=== PATIENT | female | born 1975 | race Caucasian/White ===

== ENCOUNTER 2018-01-03 20:17 | Emergency (ER) | payer MEDICARE, OTHER ==
[2018-01-03] MEDS ORDERED: Triamcinolone Acetonide 40 MG/ML 1 ML MDV IM ONE (20:18)
[2018-01-03] MEDS ORDERED: Lidocaine 2% 20 ML MDV INJECT ONE (20:18)
[2018-01-03] MEDS ORDERED: Triamcinolone Acetonide 40 MG/ML 1 ML MDV ONE (21:07)
[2018-01-03] MEDS: Triamcinolone Acetonide 40 MG/ML 1 ML MDV INJECT ONE ×2 (21:07→21:47)
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
== END 2018-01-03 21:45 | disposition home or self-care (01) ==
LOC: FB.ED 20:17
DX: M79.7 Fibromyalgia (principal); M25.511 Pain in right shoulder; J43.9 Emphysema, unspecified; E66.9 Obesity, unspecified; M54.5 Low back pain; G89.29 Other chronic pain; Z68.38 Body mass index [BMI] 38.0-38.9, adult
CPT/HCPCS: 20610; 99282; J3301

== ENCOUNTER 2019-01-16 07:47 | Emergency (ER) | payer MEDICARE, MEDICAID ==
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
[2019-01-16] MEDS: Prochlorperazine 10 MG/2 ML SDV IM ONE (08:40)
[2019-01-16] MEDS: Ketorolac 60 MG/2 ML SDV IM ONE (08:40)
[2019-01-16] MEDS: diphenhydrAMINE 50 MG/ML SDV IM ONE (08:40)
== END 2019-01-16 08:47 | disposition home or self-care (01) ==
LOC: FB.ED 07:47
DX: G43.909 Migraine, unspecified, not intractable, without status migrainosus (principal); H60.12 Cellulitis of left external ear; I10 Essential (primary) hypertension; J44.9 Chronic obstructive pulmonary disease, unspecified; G47.30 Sleep apnea, unspecified; F41.9 Anxiety disorder, unspecified; F32.9 Major depressive disorder, single episode, unspecified; F17.210 Nicotine dependence, cigarettes, uncomplicated; Z68.41 Body mass index [BMI] 40.0-44.9, adult; E66.9 Obesity, unspecified; Z88.6 Allergy status to analgesic agent; Z88.8 Allergy status to other drugs, medicaments and biological substances; Z91.048 Other nonmedicinal substance allergy status; Z79.899 Other long term (current) drug therapy; Z79.51 Long term (current) use of inhaled steroids; Z79.82 Long term (current) use of aspirin
CPT/HCPCS: 96372; 99283; J0780; J1200; J1885

== ENCOUNTER → 2019-02-19 | Outpatient (CLI) | payer MEDICARE, MEDICAID | LOC: FB.CLBR 08:00 | PROVIDERS: ATTEND Nurse Practitioner Family | DX: J20.9 Acute bronchitis, unspecified (principal) | CPT/HCPCS: 99213 ==

== ENCOUNTER 2019-02-22 16:38 | Emergency (ER) | payer MEDICARE, MEDICAID ==
[2019-02-22] MEDS ORDERED: Ketorolac 30 MG/ML SDV IVPUSH ONE (17:02)
--- NOTE | 2019-02-22 17:10 | EDM.PDOC ---
ED HPI GENERAL MEDICAL PROBLEM - General Chief Complaint: Chest Pain Stated Complaint: CHEST PAIN Time Seen by Provider: 02/22/19 17:05 Source of Information: Reports: Patient History Limitations: Reports: No Limitations - History of Present Illness INITIAL COMMENTS - FREE TEXT/NARRATIVE: Presents with substernal chest pain x 1 week exacerbated with cough and swallowing. Pain is non-radiating and sharp. Patient has had a cough x 1 month, productive of yellow/green sputum and is currently on Zithromax. Denies h/o CAD. Patient was diagnosed with pericarditis @15 yrs ago. Duration: Week(s): (1) Location: Reports: Chest Severity: Moderate chest Pain Score (Numeric/FACES): 9 - Related Data Allergies Allergy/AdvReac Type Severity Reaction Status Date / Time acetaminophen [From Tylenol] Allergy Other Verified 01/04/18 01:02 adhesive tape Allergy Rash Verified 02/22/19 18:31 ibuprofen Allergy Vomiting Verified 01/25/18 18:38 varenicline [From Chantix] Allergy Other Verified 02/22/19 18:31 Home Meds: Home Meds Montelukast [Singulair] 10 mg PO BEDTIME 01/03/18 [History] Pantoprazole Sodium [Protonix] 40 mg PO BEDTIME 01/03/18 [History] Pregabalin [Lyrica] 100 mg PO TID 01/03/18 [History] traZODone 100 mg PO BEDTIME 01/03/18 [History] Albuterol Sulfate [Proair Hfa] 2 puff IH Q4H PRN 01/25/18 [History] Albuterol/Ipratropium [DuoNeb 3.0-0.5 MG/3 ML] 3 ml Q4H 01/25/18 [History] Arformoterol [Brovana] 15 mcg IH BID 01/25/18 [History] Aspirin 81 mg PO BEDTIME 01/25/18 [History] Metoprolol Succinate [Toprol XL 50mg] 50 mg BEDTIME 01/25/18 [History] Pramipexole [Mirapex] 0.25 - 50 mg BEDTIME 01/25/18 [History] hydrOXYzine pamoate [Hydroxyzine Pamoate] 50 mg TID 01/25/18 [History] Cephalexin [Keflex] 500 mg PO QID 7 Days #28 capsule 10/11/19 [Rx] Lurasidone HCl [Latuda] 60 mg PO BEDTIME 01/16/19 [History] Vortioxetine Hydrobromide [Trintellix] 20 mg PO DAILY 01/16/19 [History] Codeine/guaiFENesin [guaiFENesin-Codeine Syrup] 10 ml PO Q4H PRN #120 ml [Rx] Past Medical History Cardiovascular History: Reports: Afib, Arrhythmia, Heart Failure, Hypertension. Denies: Blood Clots/VTE/DVT, CAD Other Cardiovascular History: Episodes of tachycardia Respiratory History: Reports: Asthma, COPD, Pneumonia, Recurrent, Sleep Apnea Other Respiratory History: Uses O2 @ 2LNC @ hs, has sleep apnea machine @ home. 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 History: [id number] Musculoskeletal History: Reports: Arthritis, Fracture, Fibromyalgia, Osteoarthritis Other Musculoskeletal History: hx fx R ankle, R hand Neurological History: Reports: Migraines, Neuropathy, Peripheral Psychiatric History: Reports: Anxiety, Depression, Other (See Below) Other Psychiatric History: insomnia Endocrine/Metabolic History: Reports: Hypothyroidism, Obesity/BMI 30+ Immunologic History: Reports: Other (See Below) Other Immunologic History: hi WBC's - Past Surgical History HEENT Surgical History: Reports: Oral Surgery ([place] teeth extraction) GI Surgical History: Reports: Appendectomy, Cholecystectomy, Colonoscopy, EGD Female Surgical History: Reports: D&C, Hysterectomy, Salpingo-Oophorectomy Other Female Surgeries/Procedures: D&C x 2 Other Neurological Surgeries/Procedures: Low back surgery SI joint & cauterized nerves Musculoskeletal Surgical History: Reports: Arthroscopic Knee, Carpal Tunnel, Other (See Below) Other Musculoskeletal Surgeries/Procedures:: Carpal tunnel repair left and right , R knee scope Social & Family History - Family History Family Medical History: Noncontributory - Tobacco Use Smoking Status *Q: Current Every Day Smoker Tobacco Use Within Last Twelve Months: Cigarettes - Caffeine Use Caffeine Use: Reports: Coffee, Soda - Living Situation & Occupation Occupation: Disabled ED ROS GENERAL - Review of Systems Review Of Systems: Comprehensive ROS is negative, except as noted in HPI. ED EXAM, GENERAL - Physical Exam Exam: See Below Exam Limited By: No Limitations General Appearance: Alert, WD/WN, No Apparent Distress Ears: Normal External Exam Throat/Mouth: No Airway Compromise Head: Atraumatic, Normocephalic Neck: Full Range of Motion Respiratory/Chest: No Respiratory Distress, Lungs Clear, Normal Breath Sounds, Other (Reproducible chest wall tenderness is present) Cardiovascular: Regular Rate, Rhythm, No Murmur GI/Abdominal: Soft, Non-Tender, No Distention Back Exam: Full Range of Motion Extremities: Normal Inspection, Normal Range of Motion, Non-Tender, No Pedal Edema Neurological: Alert, Normal Cognition, No Motor/Sensory Deficits Psychiatric: Normal Affect, Normal Mood Skin Exam: Warm, Dry, Intact EKG INTERPRETATION EKG Date: 02/22/19 Time: 16:49 Rhythm: NSR Rate (Beats/Min): 77 [place]: Normal P-Wave: Present QRS: RBBB Comparison: NA - No Prior EKG Course - Vital Signs Last Recorded V/S: Last Vital Signs Temp 37.1 C 02/22/19 16:40 Pulse 79 02/22/19 16:40 Resp 17 02/22/19 16:40 BP 118/78 02/22/19 16:40 Pulse Ox 97 02/22/19 16:40 - Orders/Labs/Meds Orders: Active Orders 24 hr Category Date Time Status EKG Documentation Completion [RC] ASDIRECTED Care 02/22/19 17:01 Active Ang Chest [CT] Stat Exams 02/22/19 18:21 Taken CXR [Chest 1V Frontal] [CR] Stat Exams 02/22/19 17:29 Taken Sodium Chloride 0.9% [Saline Flush] Med 02/22/19 17:01 Active 10 ml FLUSH ASDIRECTED PRN Saline Lock Insert [OM.PC] Routine Oth 02/22/19 17:01 Ordered EKG 12 Lead [EK] Stat Ther 02/22/19 17:01 Ordered Medication Orders Sodium Chloride (Saline Flush) 10 ml FLUSH ASDIRECTED PRN PRN Reason: Keep Vein Open Last Admin: 02/22/19 18:50 Dose: 10 ml Admin: 02/22/19 17:30 Dose: 10 ml Admin: 02/22/19 17:24 Dose: 10 ml Labs: Laboratory Tests 1102/22/19 02/22/19 Range/Units 17:25 17:25 17:25 WBC 14.2 H (4.5-12.0) X10-3/uL RBC 4.81 (3.23-5.20) x10(6)uL Hgb 14.3 (11.5-15.5) g/dL Hct 43.1 (30.0-51.3) % MCV 89.6 (80-96) fL MCH 29.7 (27.7-33.6) pg MCHC 33.2 (32.2-35.4) g/dL RDW 12.1 (11.5-15.5) % Plt Count 240 (125-369) X10(3)uL MPV 9.6 (7.4-10.4) fL Neut % (Auto) 63.5 (46-82) % Lymph % (Auto) 28.5 (13-37) % Jewell % (Auto) 5.8 (4-12) % Eos % (Auto) 2 (1.0-5.0) % Baso % (Auto) 1 (0-2) % Neut # (Auto) 9.0 H (1.6-8.3) # Lymph # (Auto) 4.1 (0.6-5.0) # Jewell # (Auto) 0.8 (0.0-1.3) # Eos # (Auto) 0.2 (0.0-0.8) # Baso # (Auto) 0.1 (0.0-0.2) # PT 9.1 (8.7-11.1) INR 0.94 (0.89-1.13) APTT 26.3 (24.4-33.2) SECONDS D-Dimer, Quantitative (0.0-0.59) mg/LFEU Sodium 142 (135-145) mmol/L Potassium 3.8 (3.5-5.3) mmol/L Chloride 104 (100-110) mmol/L Carbon Dioxide 29 (21-32) mmol/L BUN 4 L (7-18) mg/dL Creatinine 0.6 (0.55-1.02) mg/dL Est Cr Clr Drug Dosing TNP Estimated GFR (MDRD) > 60 (>60) BUN/Creatinine Ratio 6.7 L (9-20) Glucose 112 (80-116) mg/dL Calcium 9.0 (8.6-10.2) mg/dL Total Bilirubin 0.4 (0.1-1.3) mg/dL AST 20 (5-25) IU/L ALT 21 (12-36) U/L Alkaline Phosphatase 184 H (56-112) IU/L Troponin I (<0.017-0.056) ng/mL Total Protein 7.4 (6.0-8.0) g/dL Albumin 3.2 L (3.5-5.2) g/dL Globulin 4.2 g/dL Albumin/Globulin Ratio 0.8 02/22/19 02/22/19 02/22/19 Range/Units 17:25 17:25 20:30 WBC (4.5-12.0) X10-3/uL RBC (3.23-5.20) x10(6)uL Hgb (11.5-15.5) g/dL Hct (30.0-51.3) % MCV (80-96) fL MCH (27.7-33.6) pg MCHC (32.2-35.4) g/dL RDW (11.5-15.5) % Plt Count (125-369) X10(3)uL MPV (7.4-10.4) fL Neut % (Auto) (46-82) % Lymph % (Auto) (13-37) % Jewell % (Auto) (4-12) % Eos % (Auto) (1.0-5.0) % Baso % (Auto) (0-2) % Neut # (Auto) (1.6-8.3) # Lymph # (Auto) (0.6-5.0) # Jewell # (Auto) (0.0-1.3) # Eos # (Auto) (0.0-0.8) # Baso # (Auto) (0.0-0.2) # PT (8.7-11.1) INR (0.89-1.13) APTT (24.4-33.2) SECONDS D-Dimer, Quantitative 0.89 H (0.0-0.59) mg/LFEU Sodium (135-145) mmol/L Potassium (3.5-5.3) mmol/L Chloride (100-110) mmol/L Carbon Dioxide (21-32) mmol/L BUN (7-18) mg/dL Creatinine (0.55-1.02) mg/dL Est Cr Clr Drug Dosing Estimated GFR (MDRD) (>60) BUN/Creatinine Ratio (9-20) Glucose (80-116) mg/dL Calcium (8.6-10.2) mg/dL Total Bilirubin (0.1-1.3) mg/dL AST (5-25) IU/L ALT (12-36) U/L Alkaline Phosphatase (56-112) IU/L Troponin I < 0.017 L < 0.017 L (<0.017-0.056) ng/mL Total Protein (6.0-8.0) g/dL Albumin (3.5-5.2) g/dL Globulin g/dL Albumin/Globulin Ratio Meds: Medications Generic Name Dose Route Start Last Admin Trade Name Freq PRN Reason Stop Dose Admin Sodium Chloride 10 ml 02/22/19 17:01 02/22/19 18:50 Saline Flush FLUSH 10 ml ASDIRECTED PRN Administration Keep Vein Open Discontinued Medications Generic Name Dose Route Start Last Admin Trade Name Freq PRN Reason Stop Dose Admin Iopamidol 100 ml 02/22/19 18:29 02/22/19 18:46 Isovue-370 (76%) IV 02/22/19 18:30 85 ml . DIRECTED ONE Administration Ketorolac Tromethamine 30 mg 02/22/19 17:02 02/22/19 17:29 Toradol IVPUSH 02/22/19 17:03 30 mg ONETIME ONE Administration Morphine Sulfate 2 mg 02/22/19 18:25 02/22/19 18:53 Morphine IVPUSH 02/22/19 18:26 2 mg ONETIME ONE Administration - Radiology Interpretation Free Text/Narrative:: CXR: No acute process. (ED provider interpretation) CTA chest: No PE, aortic dissection, or pneumonia. Paratracheal adenopathy. ( [facility]) - Re-Assessments/Exams Free Text/Narrative Re-Assessment/Exam: 02/22/19 21:06 Symptoms improved after Morphine 2mg IV. No improvement after Toradol 30mg IV. 02/22/19 21:13 Patient states she was recently prescribed Robitussin AC, but is out. MPDMP reviewed. Departure - Departure Time of Disposition: 21:07 Disposition: Home, Self-Care 01 Condition: Good Clinical Impression: Bronchitis, Costochondritis Prescriptions: Codeine/guaiFENesin [guaiFENesin-Codeine Syrup] 10 ml PO Q4H PRN #120 ml PRN Reason: Cough Instructions: Costochondritis, [id number], Acute Bronchitis, Adult, Easy-to- Read Referrals: PCP,None [Ordering Only Provider] - Forms: ED Department Discharge Additional Instructions: Continue Zithromax. Fill the prescription for Robitussin AC and take as directed. Follow up with your primary physician in 2-3 days. Return to the ER if symptoms worsen. - My Orders Last 24 Hours: My Active Orders 02/22/19 17:01 EKG Documentation Completion [RC] ASDIRECTED Sodium Chloride 0.9% [Saline Flush] 10 ml FLUSH ASDIRECTED PRN Saline Lock Insert [OM.PC] Routine EKG 12 Lead [EK] Stat 02/22/19 17:29 CXR [Chest 1V Frontal] [CR] Stat 02/22/19 18:21 Ang Chest [CT] Stat - Assessment/Plan Last 24 Hours: My Active Orders 02/22/19 17:01 EKG Documentation Completion [RC] ASDIRECTED Sodium Chloride 0.9% [Saline Flush] 10 ml FLUSH ASDIRECTED PRN Saline Lock Insert [OM.PC] Routine EKG 12 Lead [EK] Stat 02/22/19 17:29 CXR [Chest 1V Frontal] [CR] Stat 02/22/19 18:21 Ang Chest [CT] Stat
[2019-02-22] MEDS: Sodium Chloride 0.9% 10 ML Syringe FLUSH PRN ×3 (17:24→18:50)
[2019-02-22] MEDS ORDERED: Morphine 2 MG/ML Syringe IVPUSH ONE (18:25)
[2019-02-22] MEDS ORDERED: Iopamidol 755 Mg/ML 100 ML Bottle IV ONE (18:29)
== END 2019-02-22 21:35 | disposition home or self-care (01) ==
LOC: FB.ED 16:38
DX: J40 Bronchitis, not specified as acute or chronic (principal); M94.0 Chondrocostal junction syndrome [Tietze]; I11.0 Hypertensive heart disease with heart failure; I50.9 Heart failure, unspecified; E03.9 Hypothyroidism, unspecified; J44.9 Chronic obstructive pulmonary disease, unspecified; E66.9 Obesity, unspecified; I48.91 Unspecified atrial fibrillation; F32.9 Major depressive disorder, single episode, unspecified; F17.200 Nicotine dependence, unspecified, uncomplicated; Z88.6 Allergy status to analgesic agent; Z88.8 Allergy status to other drugs, medicaments and biological substances; Z68.41 Body mass index [BMI] 40.0-44.9, adult; Z79.82 Long term (current) use of aspirin; Z79.899 Other long term (current) drug therapy; Z91.048 Other nonmedicinal substance allergy status
CPT/HCPCS: 36415; 71045; 71275; 80053; 84484; 85025; 85379; 85610; 85730; 93005; 96374; 96375; 99285; J1885; J2270; Q9967; 93010; 99283

== ENCOUNTER 2019-07-28 12:12 | Emergency (ER) | payer MEDICARE, MEDICAID ==
[2019-07-28] MEDS ORDERED: Sodium Chloride 0.9% 10 ML Syringe FLUSH PRN (12:44)
[2019-07-28] MEDS ORDERED: Morphine 2 MG/ML Syringe IVPUSH ONE (12:50)
[2019-07-28] MEDS ORDERED: Metolazone 5 MG Tab PO ONE (12:50)
[2019-07-28] MEDS ORDERED: Furosemide 40 MG/4 ML VIAL IVPUSH ONE (12:50)
--- NOTE | 2019-07-28 13:40 | EDM.PDOC ---
ED HPI GENERAL MEDICAL PROBLEM - General Chief Complaint: Cardiovascular Problem Stated Complaint: SOB Time Seen by Provider: 07/28/19 12:15 Source of Information: Reports: Patient History Limitations: Reports: No Limitations - History of Present Illness INITIAL COMMENTS - FREE TEXT/NARRATIVE: Patient presented to the ED because of dyspnea and edema for the past 4 days. She said she had fever although triage vs are normal. there is no asssociated chest pain, N/V but have lower extremity edema in which she is taking lasix 20 mg PRN. There is no cough or cold symproms or recent exposure to COVID because she is worried. mid chest Pain Score (Numeric/FACES): 8 - Related Data Allergies Allergy/AdvReac Type Severity Reaction Status Date / Time acetaminophen [From Tylenol] Allergy Other Verified 07/28/19 12:41 adhesive tape Allergy Rash Verified 07/28/19 12:41 ibuprofen Allergy Vomiting Verified 07/28/19 12:41 ranitidine [From Zantac] Allergy Hallucinati Verified 07/28/19 12:41 ons varenicline [From Chantix] Allergy Other Verified 07/28/19 12:41 sirella (sp?) Allergy Vomiting Uncoded 02/23/19 06:08 Home Meds: Home Meds Montelukast [Singulair] 10 mg PO BEDTIME 01/03/18 [History] Pantoprazole Sodium [Protonix] 40 mg PO BEDTIME 01/03/18 [History] traZODone 150 mg PO BEDTIME 01/03/18 [History] Albuterol Sulfate [Proair Hfa] 2 puff IH Q4H PRN 01/25/18 [History] Albuterol/Ipratropium [DuoNeb 3.0-0.5 MG/3 ML] 3 ml NEB Q4H 01/25/18 [History] Arformoterol [Brovana] 15 mcg NEB BID 01/25/18 [History] Aspirin 81 mg PO BEDTIME 01/25/18 [History] Metoprolol Succinate [Toprol XL 50mg] 50 mg PO BEDTIME 01/25/18 [History] hydrOXYzine pamoate [Hydroxyzine Pamoate] 50 mg PO TID PRN 01/25/18 [History] Lurasidone HCl [Latuda] 60 mg PO BEDTIME 01/16/19 [History] Vortioxetine Hydrobromide [Trintellix] 20 mg PO DAILY 01/16/19 [History] Codeine/guaiFENesin [guaiFENesin-Codeine Syrup] 10 ml PO Q4H PRN #120 ml [Rx] Azithromycin 1 tab PO ASDIRECTED 02/23/19 [History] Pramipexole [Mirapex] 0.5 mg PO BEDTIME 02/23/19 [History] Pregabalin [Lyrica] 75 mg PO TID 02/23/19 [History] predniSONE [Prednisone] 20 mg PO DAILY #7 tablet 07/28/19 [Rx] Past Medical History Cardiovascular History: Reports: Afib, Arrhythmia, Heart Failure, Hypertension Other Cardiovascular History: Episodes of tachycardia Respiratory History: Reports: Asthma, COPD, Pneumonia, Recurrent, Sleep Apnea Other Respiratory History: Uses O2 @ 2LNC @ hs, has sleep apnea machine @ home. 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: [id number] Musculoskeletal History: Reports: Arthritis, Fracture, Fibromyalgia, Osteoarthritis Other Musculoskeletal History: hx fx R ankle, R hand Neurological History: Reports: Migraines, Neuropathy, Peripheral Psychiatric History: Reports: Anxiety, Depression, Other (See Below) Other Psychiatric History: insomnia Endocrine/Metabolic History: Reports: Hypothyroidism, Obesity/BMI 30+ Immunologic History: Reports: Other (See Below) Other Immunologic History: hi WBC's - Past Surgical History HEENT Surgical History: Reports: Oral Surgery GI Surgical History: Reports: Appendectomy, Cholecystectomy, Colonoscopy, EGD Female Surgical History: Reports: D&C, Hysterectomy, Salpingo-Oophorectomy Other Female Surgeries/Procedures: D&C x 2 Other Neurological Surgeries/Procedures: Low back surgery SI joint & cauterized nerves Musculoskeletal Surgical History: Reports: Arthroscopic Knee, Carpal Tunnel, Other (See Below) Other Musculoskeletal Surgeries/Procedures:: Carpal tunnel repair left and right , R knee scope Social & Family History - Family History Family Medical History: Noncontributory - Tobacco Use Smoking Status *Q: Current Every Day Smoker Years of Tobacco use: 30 Packs/Tins Daily: 0.5 - Caffeine Use Caffeine Use: Reports: Coffee, Soda - Living Situation & Occupation Occupation: Disabled ED ROS GENERAL - Review of Systems Review Of Systems: See Below Constitutional: Reports: No Symptoms HEENT: Reports: No Symptoms Respiratory: Reports: Shortness of Breath Cardiovascular: Reports: No Symptoms Endocrine: Reports: No Symptoms GI/Abdominal: Reports: No Symptoms : Reports: No Symptoms Musculoskeletal: Reports: No Symptoms Skin: Reports: No Symptoms Neurological: Reports: No Symptoms Psychiatric: Reports: No Symptoms ED EXAM, GENERAL - Physical Exam Exam: See Below Exam Limited By: No Limitations General Appearance: Alert, No Apparent Distress Ears: Normal External Exam, Normal Canal Nose: Normal Inspection, Normal Mucosa Throat/Mouth: Normal Inspection, Normal Lips Head: Atraumatic, Normocephalic Neck: Normal Inspection, Supple Respiratory/Chest: No Respiratory Distress, Lungs Clear, Normal Breath Sounds Cardiovascular: Normal Peripheral Pulses, Regular Rate, Rhythm, No Edema, No Gallop GI/Abdominal: Normal Bowel Sounds, Soft, Non-Tender Back Exam: Normal Inspection, Full Range of Motion Extremities: Normal Inspection Course - Vital Signs Text/Narrative:: Labs/EKG/CXR was discussed with patient and verbalized full understanding EKG-NSR Trop-neg Pro BNP-neg CXR-neg Lasix 40 mg IV zaroxolyn 5 mg po x1 Morphine 2 mg IV x1 Last Recorded V/S: Last Vital Signs Temp 36.1 C 07/28/19 13:30 Pulse 67 07/28/19 13:30 Resp 14 07/28/19 13:30 BP 120/62 07/28/19 13:30 Pulse Ox 96 07/28/19 13:30 - Orders/Labs/Meds Labs: Laboratory Tests 07/28/19 07/28/19 07/28/19 Range/Units 13:00 13:00 13:00 WBC 11.1 (4.5-12.0) X10-3/uL RBC 4.67 (3.23-5.20) x10(6)uL Hgb 14.0 (11.5-15.5) g/dL Hct 41.3 (30.0-51.3) % MCV 88.5 (80-96) fL MCH 30.1 (27.7-33.6) pg MCHC 34.0 (32.2-35.4) g/dL RDW 12.1 (11.5-15.5) % Plt Count 209 (125-369) X10(3)uL MPV 9.7 (7.4-10.4) fL Neut % (Auto) 52.8 (46-82) % Lymph % (Auto) 36.4 (13-37) % Carter % (Auto) 8.1 (4-12) % Eos % (Auto) 2 (1.0-5.0) % Baso % (Auto) 1 (0-2) % Neut # (Auto) 5.9 (1.6-8.3) # Lymph # (Auto) 4.0 (0.6-5.0) # Carter # (Auto) 0.9 (0.0-1.3) # Eos # (Auto) 0.2 (0.0-0.8) # Baso # (Auto) 0.1 (0.0-0.2) # D-Dimer, Quantitative (0.0-0.59) mg/LFEU Sodium 143 (135-145) mmol/L Potassium 4.2 (3.5-5.3) mmol/L Chloride 106 (100-110) mmol/L Carbon Dioxide 27 (21-32) mmol/L BUN 9 (7-18) mg/dL Creatinine 0.8 (0.55-1.02) mg/dL Est Cr Clr Drug Dosing 75.01 mL/min Estimated GFR (MDRD) > 60 (>60) BUN/Creatinine Ratio 11.3 (9-20) Glucose 96 (80-116) mg/dL Calcium 8.8 (8.6-10.2) mg/dL Total Bilirubin 0.4 (0.1-1.3) mg/dL AST 20 (5-25) IU/L ALT 21 (12-36) U/L Alkaline Phosphatase 186 H (56-112) IU/L Troponin I 4.8 (4.0-60.3) pg/mL NT-Pro-B Natriuret Pep 15 (<=125) pg/mL Total Protein 7.1 (6.0-8.0) g/dL Albumin 3.1 L (3.5-5.2) g/dL Globulin 4.0 g/dL Albumin/Globulin Ratio 0.8 / Range/Units 13:00 WBC (4.5-12.0) X10-3/uL RBC (3.23-5.20) x10(6)uL Hgb (11.5-15.5) g/dL Hct (30.0-51.3) % MCV (80-96) fL MCH (27.7-33.6) pg MCHC (32.2-35.4) g/dL RDW (11.5-15.5) % Plt Count (125-369) X10(3)uL MPV (7.4-10.4) fL Neut % (Auto) (46-82) % Lymph % (Auto) (13-37) % Carter % (Auto) (4-12) % Eos % (Auto) (1.0-5.0) % Baso % (Auto) (0-2) % Neut # (Auto) (1.6-8.3) # Lymph # (Auto) (0.6-5.0) # Carter # (Auto) (0.0-1.3) # Eos # (Auto) (0.0-0.8) # Baso # (Auto) (0.0-0.2) # D-Dimer, Quantitative 0.51 (0.0-0.59) mg/LFEU Sodium (135-145) mmol/L Potassium (3.5-5.3) mmol/L Chloride (100-110) mmol/L Carbon Dioxide (21-32) mmol/L BUN (7-18) mg/dL Creatinine (0.55-1.02) mg/dL Est Cr Clr Drug Dosing mL/min Estimated GFR (MDRD) (>60) BUN/Creatinine Ratio (9-20) Glucose (80-116) mg/dL Calcium (8.6-10.2) mg/dL Total Bilirubin (0.1-1.3) mg/dL AST (5-25) IU/L ALT (12-36) U/L Alkaline Phosphatase (56-112) IU/L Troponin I (4.0-60.3) pg/mL NT-Pro-B Natriuret Pep (<=125) pg/mL Total Protein (6.0-8.0) g/dL Albumin (3.5-5.2) g/dL Globulin g/dL Albumin/Globulin Ratio Meds: Medications Discontinued Medications Generic Name Dose Route Start Last Admin Trade Name [place] PRN Reason Stop Dose Admin Furosemide 40 mg 07/28/19 12:50 07/28/19 13:09 Lasix IVPUSH 07/28/19 12:51 40 mg NOW ONE Administration Metolazone 5 mg 07/28/19 12:50 07/28/19 13:09 Zaroxolyn PO 07/28/19 12:51 5 mg ONETIME ONE Administration Morphine Sulfate 2 mg 07/28/19 12:50 07/28/19 13:09 Morphine IVPUSH 07/28/19 12:51 2 mg ONETIME ONE Administration Sodium Chloride 10 ml 07/28/19 12:44 07/28/19 13:10 Saline Flush FLUSH 10 ml ASDIRECTED PRN Administration Keep Vein Open Departure - Departure Time of Disposition: 13:40 Disposition: Home, Self-Care 01 Condition: Good Clinical Impression: COPD (chronic obstructive pulmonary disease), CHF (congestive heart failure) Prescriptions: predniSONE [Prednisone] 20 mg PO DAILY #7 tablet Instructions: Chronic Obstructive Pulmonary Disease, Heart Failure, Easy-to- Read Referrals: [facility] [Primary Care Provider] - Forms: ED Department Discharge Additional Instructions: please read discharge instructions on COPD and CHF take your lasix 20 mg daily for 5 days prednisone 20 mg daily for 7 days follow up with your doctor if symptoms persist or worsens Sepsis Event Note - Evaluation Sepsis Screening Result: No Definite Risk - Focused Exam Date Exam was Performed: 07/30/19 Time Exam was Performed: 10:57
--- NOTE | 2019-07-28 17:18 | CR ---
INDICATION: Chest pain. CHEST, ONE VIEW: AP upright view of the chest was obtained 07/28/19 and compared with 02/22/19 and 01/25/18. The heart did not appear enlarged. Mediastinum was unremarkable. Mild degenerative changes noted in the mid thoracic spine. Overlying EKG leads are noted. A definite active infiltrate or effusion was not identified. Evidence of exogenous obesity is noted. IMPRESSION: No acute process. MTDD
== END 2019-07-28 13:50 | disposition home or self-care (01) ==
LOC: FB.ED 12:12
DX: J44.9 Chronic obstructive pulmonary disease, unspecified (principal); I11.0 Hypertensive heart disease with heart failure; I50.9 Heart failure, unspecified; I48.91 Unspecified atrial fibrillation; M19.90 Unspecified osteoarthritis, unspecified site; F41.9 Anxiety disorder, unspecified; F32.9 Major depressive disorder, single episode, unspecified; E03.9 Hypothyroidism, unspecified; E66.9 Obesity, unspecified; Z68.24 Body mass index [BMI] 24.0-24.9, adult; F17.210 Nicotine dependence, cigarettes, uncomplicated; Z88.8 Allergy status to other drugs, medicaments and biological substances; Z88.6 Allergy status to analgesic agent; Z91.048 Other nonmedicinal substance allergy status; Z79.899 Other long term (current) drug therapy; Z79.82 Long term (current) use of aspirin
CPT/HCPCS: 36415; 71045; 80053; 83880; 84484; 85025; 85379; 93005; 96374; 96375; 99285-25; A9270-GY; J1940; J2270

== ENCOUNTER 2019-08-04 18:34 | Emergency (ER) | payer MEDICARE, MEDICAID ==
[2019-08-04] MEDS ORDERED: Aspirin 81 MG Tab.Chew PO ONE (19:03)
[2019-08-04] MEDS ORDERED: Ketorolac 30 MG/ML SDV IVPUSH ONE (19:04)
--- NOTE | 2019-08-04 20:01 | EDM.PDOC ---
ED HPI GENERAL MEDICAL PROBLEM - General Chief Complaint: Chest Pain Stated Complaint: CHEST PAIN Time Seen by Provider: 08/04/19 18:40 Source of Information: Reports: Patient History Limitations: Reports: No Limitations - History of Present Illness INITIAL COMMENTS - FREE TEXT/NARRATIVE: Patient presented to the ED because of chest pain over the left chest wall which started at 3 pm. The pain is sharp and pressure type but is also pleuritic. There is no associated N/V,cough fever or chills. She was just seen 1 week ago and was diagnosed with peripheral edema in which she was stared on lasix 40 daily. mid chest Pain Score (Numeric/FACES): 8 - Related Data Allergies Allergy/AdvReac Type Severity Reaction Status Date / Time acetaminophen [From Tylenol] Allergy Other Verified 07/28/19 12:41 adhesive tape Allergy Rash Verified 07/28/19 12:41 ibuprofen Allergy Vomiting Verified 07/28/19 12:41 ranitidine [From Zantac] Allergy Hallucinati Verified 07/28/19 12:41 ons varenicline [From Chantix] Allergy Other Verified 07/28/19 12:41 sirella (sp?) Allergy Vomiting Uncoded 02/23/19 06:08 Home Meds: Home Meds Montelukast [Singulair] 10 mg PO BEDTIME 01/03/18 [History] Pantoprazole Sodium [Protonix] 40 mg PO BEDTIME 01/03/18 [History] traZODone 150 mg PO BEDTIME 01/03/18 [History] Albuterol Sulfate [Proair Hfa] 2 puff IH Q4H PRN 01/25/18 [History] Albuterol/Ipratropium [DuoNeb 3.0-0.5 MG/3 ML] 3 ml NEB Q4H 01/25/18 [History] Arformoterol [Brovana] 15 mcg NEB BID 01/25/18 [History] Aspirin 81 mg PO BEDTIME 01/25/18 [History] Metoprolol Succinate [Toprol XL 50mg] 50 mg PO BEDTIME 01/25/18 [History] hydrOXYzine pamoate [Hydroxyzine Pamoate] 50 mg PO TID PRN 01/25/18 [History] Lurasidone HCl [Latuda] 60 mg PO BEDTIME 01/16/19 [History] Vortioxetine Hydrobromide [Trintellix] 20 mg PO DAILY 01/16/19 [History] Codeine/guaiFENesin [guaiFENesin-Codeine Syrup] 10 ml PO Q4H PRN #120 ml [Rx] Azithromycin 1 tab PO ASDIRECTED 02/23/19 [History] Pramipexole [Mirapex] 0.5 mg PO BEDTIME 02/23/19 [History] Pregabalin [Lyrica] 75 mg PO TID 02/23/19 [History] predniSONE [Prednisone] 20 mg PO DAILY #7 tablet 07/28/19 [Rx] Past Medical History Cardiovascular History: Reports: Afib, Arrhythmia, Heart Failure, Heart Murmur, Hypertension, Other (See Below) Other Cardiovascular History: Episodes of tachycardia, pericarditis Respiratory History: Reports: Asthma, COPD, Pneumonia, Recurrent, Sleep Apnea Other Respiratory History: Uses O2 @ 2LNC @ hs, has sleep apnea machine @ home. Gastrointestinal History: Reports: Irritable Bowel Syndrome, Other (See Below) Other Gastrointestinal History: Elevated liver enzymes Genitourinary History: Reports: Urinary Incontinence [employer] History: Reports: Other (See Below) Other [employer] History: [id number] Musculoskeletal History: Reports: Arthritis, Fracture, Fibromyalgia, Osteoarthritis Other Musculoskeletal History: hx fx R ankle, R hand Neurological History: Reports: Migraines, Neuropathy, Peripheral Psychiatric History: Reports: Anxiety, Depression, Other (See Below) Other Psychiatric History: insomnia Endocrine/Metabolic History: Reports: Hypothyroidism, Obesity/BMI 30+ Immunologic History: Reports: Other (See Below) Other Immunologic History: hi WBC's - Past Surgical History HEENT Surgical History: Reports: Oral Surgery GI Surgical History: Reports: Appendectomy, Cholecystectomy, Colonoscopy, EGD Female Surgical History: Reports: D&C, Hysterectomy, Salpingo-Oophorectomy Other Female Surgeries/Procedures: D&C x 2 Other Neurological Surgeries/Procedures: Low back surgery SI joint & cauterized nerves Musculoskeletal Surgical History: Reports: Arthroscopic Knee, Carpal Tunnel, Other (See Below) Other Musculoskeletal Surgeries/Procedures:: Carpal tunnel repair left and right , R knee scope Social & Family History - Family History Family Medical History: Noncontributory - Tobacco Use Smoking Status *Q: Current Every Day Smoker Years of Tobacco use: 0 Packs/Tins Daily: 0.2 - Caffeine Use Caffeine Use: Reports: Coffee, Soda - Recreational Drug Use Recreational Drug Use: No - Living Situation & Occupation Occupation: Disabled ED ROS GENERAL - Review of Systems Review Of Systems: See Below Constitutional: Reports: No Symptoms HEENT: Reports: No Symptoms Respiratory: Reports: No Symptoms Cardiovascular: Reports: Chest Pain Endocrine: Reports: No Symptoms GI/Abdominal: Reports: No Symptoms : Reports: No Symptoms Musculoskeletal: Reports: No Symptoms Skin: Reports: No Symptoms Neurological: Reports: No Symptoms Psychiatric: Reports: No Symptoms ED EXAM, GENERAL - Physical Exam Exam: See Below Exam Limited By: No Limitations General Appearance: Alert, No Apparent Distress Ears: Normal External Exam, Normal Canal, Hearing Grossly Normal Nose: Normal Inspection, Normal Mucosa, No Blood Throat/Mouth: Normal Inspection, Normal Lips, Normal Teeth Head: Atraumatic, Normocephalic Neck: Normal Inspection, Supple, Non-Tender Respiratory/Chest: No Respiratory Distress, Lungs Clear, Normal Breath Sounds Cardiovascular: Normal Peripheral Pulses, Regular Rate, Rhythm, No Edema, No JVD , No Murmur GI/Abdominal: Normal Bowel Sounds, Soft, Non-Tender, No Organomegaly Neurological: Alert, Oriented, CN II-XII Intact, Normal Cognition Course - Vital Signs Text/Narrative:: labs reviewed and discussed with the patient and verbalized ful understanding asa 324 mg toradol 30 mg IV tramadol 100mg po x1 Last Recorded V/S: Last Vital Signs Temp 36.5 C 08/04/19 18:35 Pulse 78 08/04/19 18:35 Resp 15 08/04/19 18:35 BP 118/59 L 08/04/19 18:35 Pulse Ox 99 08/04/19 18:35 - Orders/Labs/Meds Labs: Laboratory Tests 08/04/19 08/04/19 08/04/19 Range/Units 19:20 19:20 19:20 WBC 13.9 H (4.5-12.0) X10-3/uL RBC 4.89 (3.23-5.20) x10(6)uL Hgb 14.4 (11.5-15.5) g/dL Hct 43.3 (30.0-51.3) % MCV 88.6 (80-96) fL MCH 29.4 (27.7-33.6) pg MCHC 33.2 (32.2-35.4) g/dL RDW 12.5 (11.5-15.5) % Plt Count 214 (125-369) X10(3)uL MPV 9.5 (7.4-10.4) fL Neut % (Auto) 59.3 (46-82) % Lymph % (Auto) 32.2 (13-37) % Barbour % (Auto) 6.4 (4-12) % Eos % (Auto) 2 (1.0-5.0) % Baso % (Auto) 1 (0-2) % Neut # (Auto) 8.2 (1.6-8.3) # Lymph # (Auto) 4.5 (0.6-5.0) # Barbour # (Auto) 0.9 (0.0-1.3) # Eos # (Auto) 0.2 (0.0-0.8) # Baso # (Auto) 0.1 (0.0-0.2) # D-Dimer, Quantitative 0.48 (0.0-0.59) mg/LFEU Sodium 145 (135-145) mmol/L Potassium 4.1 (3.5-5.3) mmol/L Chloride 107 D (100-110) mmol/L Carbon Dioxide 30 (21-32) mmol/L BUN 12 (7-18) mg/dL Creatinine 0.7 (0.55-1.02) mg/dL Est Cr Clr Drug Dosing 85.72 mL/min Estimated GFR (MDRD) > 60 (>60) BUN/Creatinine Ratio 17.1 (9-20) Glucose 88 (80-116) mg/dL Calcium 8.8 (8.6-10.2) mg/dL Total Bilirubin 0.4 (0.1-1.3) mg/dL AST 38 H D (5-25) IU/L ALT 46 H D (12-36) U/L Alkaline Phosphatase 182 H (56-112) IU/L Troponin I (4.0-60.3) pg/mL Total Protein 7.1 (6.0-8.0) g/dL Albumin 3.1 L (3.5-5.2) g/dL Globulin 4.0 g/dL Albumin/Globulin Ratio 0.8 04/28/20 Range/Units 19:20 WBC (4.5-12.0) X10-3/uL RBC (3.23-5.20) x10(6)uL Hgb (11.5-15.5) g/dL Hct (30.0-51.3) % MCV (80-96) fL MCH (27.7-33.6) pg MCHC (32.2-35.4) g/dL RDW (11.5-15.5) % Plt Count (125-369) X10(3)uL MPV (7.4-10.4) fL Neut % (Auto) (46-82) % Lymph % (Auto) (13-37) % Barbour % (Auto) (4-12) % Eos % (Auto) (1.0-5.0) % Baso % (Auto) (0-2) % Neut # (Auto) (1.6-8.3) # Lymph # (Auto) (0.6-5.0) # Barbour # (Auto) (0.0-1.3) # Eos # (Auto) (0.0-0.8) # Baso # (Auto) (0.0-0.2) # D-Dimer, Quantitative (0.0-0.59) mg/LFEU Sodium (135-145) mmol/L Potassium (3.5-5.3) mmol/L Chloride (100-110) mmol/L Carbon Dioxide (21-32) mmol/L BUN (7-18) mg/dL Creatinine (0.55-1.02) mg/dL Est Cr Clr Drug Dosing mL/min Estimated GFR (MDRD) (>60) BUN/Creatinine Ratio (9-20) Glucose (80-116) mg/dL Calcium (8.6-10.2) mg/dL Total Bilirubin (0.1-1.3) mg/dL AST (5-25) IU/L ALT (12-36) U/L Alkaline Phosphatase (56-112) IU/L Troponin I 5.8 (4.0-60.3) pg/mL Total Protein (6.0-8.0) g/dL Albumin (3.5-5.2) g/dL Globulin g/dL Albumin/Globulin Ratio Meds: Medications Discontinued Medications Generic Name Dose Route Start Last Admin Trade Name eHaven PRN Reason Stop Dose Admin Aspirin 324 mg 08/04/19 19:03 08/04/19 19:21 Aspirin PO 08/04/19 19:04 324 mg ONETIME ONE Administration Ketorolac Tromethamine 30 mg 08/04/19 19:04 08/04/19 19:20 Toradol IVPUSH 08/04/19 19:05 30 mg ONETIME ONE Administration Tramadol HCl 100 mg 08/04/19 20:07 08/04/19 20:11 Ultram PO 08/04/19 20:08 100 mg ONETIME ONE Administration Departure - Departure Time of Disposition: 20:10 Disposition: Home, Self-Care 01 Condition: Good Clinical Impression: Pleurisy Instructions: Nonspecific Chest Pain, Adult, [id number], Pleurisy, Easy-to- Read Referrals: PCP,None [Primary Care Provider] - Forms: ED Department Discharge Additional Instructions: Please read discharge instructions on pleurisy and pleuritic pain Continue Voltaren and naltrexone for your pain Tell your doctor to refer you back to your pain specialist if your pain is not adequately controlled with voltaren and naltrexone Sepsis Event Note - Evaluation Sepsis Screening Result: No Definite Risk - Focused Exam Vital Signs: Vital Signs Temp Pulse Resp BP Pulse Ox 08/04/19 18:35 36.5 C 78 15 118/59 L 99 Date Exam was Performed: 08/04/19 Time Exam was Performed: 22:43
[2019-08-04] MEDS ORDERED: traMADol 50 MG Tab PO ONE (20:07)
== END 2019-08-04 20:20 | disposition home or self-care (01) ==
LOC: FB.ED 18:34
DX: R09.1 Pleurisy (principal); I48.91 Unspecified atrial fibrillation; I11.0 Hypertensive heart disease with heart failure; I50.9 Heart failure, unspecified; J44.9 Chronic obstructive pulmonary disease, unspecified; M19.90 Unspecified osteoarthritis, unspecified site; G62.9 Polyneuropathy, unspecified; F41.9 Anxiety disorder, unspecified; F32.9 Major depressive disorder, single episode, unspecified; E03.9 Hypothyroidism, unspecified; E66.9 Obesity, unspecified; F17.210 Nicotine dependence, cigarettes, uncomplicated; Z68.26 Body mass index [BMI] 26.0-26.9, adult; Z99.81 Dependence on supplemental oxygen; Z88.6 Allergy status to analgesic agent; Z91.09 Other allergy status, other than to drugs and biological substances; Z88.8 Allergy status to other drugs, medicaments and biological substances
CPT/HCPCS: 36415; 80053; 84484; 85025; 85379; 96374; 99285; A9270; J1885

== ENCOUNTER 2022-04-26 12:17 | Emergency (ER) | payer MEDICARE, MEDICAID | END 2022-04-26 13:10 | disposition home or self-care (01) | LOC: FB.ED 12:17 | DX: S05.92XA Unspecified injury of left eye and orbit, initial encounter (principal); I48.91 Unspecified atrial fibrillation; I11.0 Hypertensive heart disease with heart failure; I50.9 Heart failure, unspecified; J44.9 Chronic obstructive pulmonary disease, unspecified; M19.90 Unspecified osteoarthritis, unspecified site; E03.9 Hypothyroidism, unspecified; E66.9 Obesity, unspecified; Z88.6 Allergy status to analgesic agent; Z91.048 Other nonmedicinal substance allergy status; Z88.8 Allergy status to other drugs, medicaments and biological substances; Z79.82 Long term (current) use of aspirin; Z79.899 Other long term (current) drug therapy | CPT/HCPCS: 99283 ==

== ENCOUNTER 2023-09-26 14:10 | Emergency (ER) | payer MEDICARE, MEDICAID ==
[2023-09-26] MEDS ORDERED: Sodium Chloride 0.9% 10 ML Syringe FLUSH PRN (14:39)
[2023-09-26] MEDS: diphenhydrAMINE 50 MG/ML SDV IVPUSH ONE (14:50)
[2023-09-26] MEDS: Prochlorperazine 10 MG/2 ML SDV IVPUSH ONE (14:50)
[2023-09-26] MEDS: Ketorolac 30 MG/ML SDV IVPUSH ONE (14:51)
[2023-09-26] MEDS: Sodium Chloride 0.9% 500 ML IV ONE (14:53)
[2023-09-26] MEDS: Sodium Chloride 0.9% 1,000 ML IV ONE (14:55)
[2023-09-26] MEDS: Haloperidol Lactate 5 MG/ML SDV IVPUSH ONE (15:40)
[2023-09-26] MEDS: LORazepam 2 MG/ML SDV IVPUSH ONE (15:40)
== END 2023-09-26 16:19 | disposition home or self-care (01) ==
LOC: FB.ED 14:10
DX: G43.911 Migraine, unspecified, intractable, with status migrainosus (principal); E86.0 Dehydration; I11.0 Hypertensive heart disease with heart failure; I50.9 Heart failure, unspecified; J44.9 Chronic obstructive pulmonary disease, unspecified; E66.9 Obesity, unspecified; F17.210 Nicotine dependence, cigarettes, uncomplicated; Z90.49 Acquired absence of other specified parts of digestive tract; Z90.710 Acquired absence of both cervix and uterus; Z79.82 Long term (current) use of aspirin; Z79.899 Other long term (current) drug therapy; Z79.52 Long term (current) use of systemic steroids; Z88.6 Allergy status to analgesic agent; Z88.8 Allergy status to other drugs, medicaments and biological substances; Z68.34 Body mass index [BMI] 34.0-34.9, adult
CPT/HCPCS: 96374; 96375; 99283; 99283-25; J0780; J1200; J1630; J1885; J2060; J7030

== ENCOUNTER 2024-06-13 18:17 | Emergency (ER) | payer MEDICARE ==
[2024-06-13] MEDS: Ondansetron 4 MG Tab.DIS PO ONE (18:55)
[2024-06-13] MEDS: Ketorolac 30 MG/ML SDV IM STA (18:55)
[2024-06-13] MEDS: SUMAtriptan 6 MG/0.5 ML SDV SUBCUT ONE (18:55)
== END 2024-06-13 19:24 | disposition home or self-care (01) ==
LOC: FB.ED 18:17
DX: G43.909 Migraine, unspecified, not intractable, without status migrainosus (principal); I11.0 Hypertensive heart disease with heart failure; I50.9 Heart failure, unspecified; J44.9 Chronic obstructive pulmonary disease, unspecified; F17.210 Nicotine dependence, cigarettes, uncomplicated; I48.91 Unspecified atrial fibrillation; E03.9 Hypothyroidism, unspecified; E66.9 Obesity, unspecified; Z90.710 Acquired absence of both cervix and uterus; Z79.899 Other long term (current) drug therapy; Z79.82 Long term (current) use of aspirin; Z88.6 Allergy status to analgesic agent; Z91.048 Other nonmedicinal substance allergy status; Z88.8 Allergy status to other drugs, medicaments and biological substances
CPT/HCPCS: 96372; 99283; J1885; J3030; Q0162

== ENCOUNTER 2024-11-30 14:26 | Emergency (ER) | payer MEDICARE ==
[2024-11-30] MEDS ORDERED: Naloxone 0.4 MG/ML SDV IVPUSH PRN (14:50)
[2024-11-30] MEDS: HYDROmorphone 2 MG/ML SDV IM ONE (14:57)
== END 2024-11-30 15:15 | disposition home or self-care (01) ==
LOC: FB.ED 14:26
DX: M79.7 Fibromyalgia (principal); I48.91 Unspecified atrial fibrillation; I11.0 Hypertensive heart disease with heart failure; I50.9 Heart failure, unspecified; J44.9 Chronic obstructive pulmonary disease, unspecified; E03.9 Hypothyroidism, unspecified; Z90.49 Acquired absence of other specified parts of digestive tract; Z91.048 Other nonmedicinal substance allergy status; Z88.8 Allergy status to other drugs, medicaments and biological substances; Z88.6 Allergy status to analgesic agent; Z79.51 Long term (current) use of inhaled steroids; Z79.899 Other long term (current) drug therapy; Z79.82 Long term (current) use of aspirin
CPT/HCPCS: 96372; 99283; J1171

== ENCOUNTER 2024-12-10 18:04 | Emergency (ER) | payer MEDICARE ==
[2024-12-10] MEDS ORDERED: Ondansetron 4 MG Tab.DIS PO ONE (18:05)
[2024-12-10] MEDS: Prochlorperazine 10 MG/2 ML SDV IVPUSH ONE (18:56)
[2024-12-10 18:58] LABS: MEAN PLATELET VOLUME 9.9 fL (7.1-12.4); PLATELET COUNT,PLT 272 x10(3)uL (151-488); RED BLOOD CELL COUNT 5.47 x10(6)uL (3.60-5.20); RED CELL DISTRIBUTION WIDTH 13.9 % (12.3-16.5); WHITE BLOOD CELL COUNT,WBC 24.2 x10-3/uL (3.0-10.3)
[2024-12-10 19:02] LABS: BLOOD UREA NITROGEN,BUN 8 mg/dL (7-18); CARBON DIOXIDE,CO2 24 mmol/L (21-32); CHLORIDE,CL 103 mmol/L (100-110); CREATININE 0.9 mg/dL (0.55-1.02); EST CRCL DRUG DOSING (CG) 66.01 mL/min; ESTIMATED GFR 79 mL/min (>60); GLUCOSE RANDOM 158 mg/dL (80-116); POTASSIUM,K 3.3 mmol/L (3.5-5.3); SODIUM,NA 143 mmol/L (135-145)
[2024-12-10 19:08] LABS: A/G RATIO 0.9; ALANINE AMINOTRANSFERASE,ALT 16 U/L (12-36); ASPARTATE AMNIOTRANSFERASE,AST 20 IU/L (5-25); BILIRUBIN TOTAL 0.5 mg/dL (0.1-1.3); PROTEIN TOTAL,TP 7.9 g/dL (6.0-8.0)
[2024-12-10 19:17] LABS: BAND PERCENT MAN 4 % (0-6); LYMPHOCYTES PERCENT MAN 9 % (13-37); MONOCYTES PERCENT MAN 5 % (4-12); SEG NEUTROPHILS PERCENT MAN 82 % (46-82)
[2024-12-10 19:53] LABS: GLUCOSE,URINE >1000 mg/dL (NORMAL); OCCULT BLOOD,URINE MODERATE (NEGATIVE)
[2024-12-10 19:57] LABS: APPEARANCE,URINE CLEAR (CLEAR)
[2024-12-10 19:58] LABS: SQUAMOUS EPITHELIAL CELLS,UR OCCASIONAL (NS,R,O)
== END 2024-12-10 20:30 | disposition home or self-care (01) ==
LOC: FB.ED 18:04
DX: K52.9 Noninfective gastroenteritis and colitis, unspecified (principal); I11.0 Hypertensive heart disease with heart failure; I50.9 Heart failure, unspecified; I48.91 Unspecified atrial fibrillation; J44.89 Other specified chronic obstructive pulmonary disease; E03.9 Hypothyroidism, unspecified; Z79.899 Other long term (current) drug therapy; Z79.82 Long term (current) use of aspirin; Z91.048 Other nonmedicinal substance allergy status; Z88.6 Allergy status to analgesic agent; Z88.8 Allergy status to other drugs, medicaments and biological substances
CPT/HCPCS: 36415; 80053; 81001; 84484; 85025; 93005; 93010; 96361; 96374; 99284; 99284-25; J0780; J7030; Q0162

== ENCOUNTER 2024-12-15 11:07 | Emergency (ER) | payer MEDICARE | END 2024-12-15 13:20 | disposition home or self-care (01) | LOC: FB.ED 11:07 | DX: S90.32XA Contusion of left foot, initial encounter (principal); I11.0 Hypertensive heart disease with heart failure; I50.9 Heart failure, unspecified; J44.89 Other specified chronic obstructive pulmonary disease; E03.9 Hypothyroidism, unspecified; Z90.49 Acquired absence of other specified parts of digestive tract; Z79.82 Long term (current) use of aspirin; Z79.899 Other long term (current) drug therapy; Z91.048 Other nonmedicinal substance allergy status; Z88.6 Allergy status to analgesic agent; Z88.8 Allergy status to other drugs, medicaments and biological substances; Z88.5 Allergy status to narcotic agent; X58.XXXA Exposure to other specified factors, initial encounter; M50.13 Cervical disc disorder with radiculopathy, cervicothoracic region; M50.123 Cervical disc disorder at C6-C7 level with radiculopathy | CPT/HCPCS: 72141; 73630; 99283; A9270 ==

== ENCOUNTER 2024-12-25 14:23 | Emergency (ER) | payer MEDICARE ==
[2024-12-25 15:03] LABS: MEAN PLATELET VOLUME 9.1 fL (7.1-12.4); PLATELET COUNT,PLT 254 x10(3)uL (151-488); RED BLOOD CELL COUNT 5.18 x10(6)uL (3.60-5.20); RED CELL DISTRIBUTION WIDTH 14.2 % (12.3-16.5); WHITE BLOOD CELL COUNT,WBC 18.1 x10-3/uL (3.0-10.3)
[2024-12-25] MEDS: Prochlorperazine 10 MG/2 ML SDV IVPUSH ONE (15:03)
[2024-12-25 15:04] LABS: BLOOD UREA NITROGEN,BUN 9 mg/dL (7-18); CARBON DIOXIDE,CO2 29 mmol/L (21-32); CHLORIDE,CL 96 mmol/L (100-110); CREATININE 0.9 mg/dL (0.55-1.02); ESTIMATED GFR 79 mL/min (>60); GLUCOSE RANDOM 158 mg/dL (80-116); POTASSIUM,K 4.2 mmol/L (3.5-5.3); SODIUM,NA 133 mmol/L (135-145)
[2024-12-25 15:14] LABS: A/G RATIO 1.0; ALANINE AMINOTRANSFERASE,ALT 14 U/L (12-36); ASPARTATE AMNIOTRANSFERASE,AST 13 IU/L (5-25); BILIRUBIN TOTAL 0.7 mg/dL (0.1-1.3); PROTEIN TOTAL,TP 7.1 g/dL (6.0-8.0)
[2024-12-25 15:29] LABS: LYMPHOCYTES PERCENT MAN 31 % (13-37); MONOCYTES PERCENT MAN 5 % (4-12); SEG NEUTROPHILS PERCENT MAN 64 % (46-82)
[2024-12-25 16:20] LABS: GLUCOSE,URINE NORMAL (NORMAL); OCCULT BLOOD,URINE NEGATIVE (NEGATIVE)
[2024-12-25 16:21] LABS: APPEARANCE,URINE CLEAR (CLEAR)
== END 2024-12-25 16:44 | disposition home or self-care (01) ==
LOC: FB.ED 14:23
DX: R11.2 Nausea with vomiting, unspecified (principal); I11.0 Hypertensive heart disease with heart failure; I50.9 Heart failure, unspecified; I48.91 Unspecified atrial fibrillation; E03.9 Hypothyroidism, unspecified; J44.89 Other specified chronic obstructive pulmonary disease; F17.210 Nicotine dependence, cigarettes, uncomplicated; Z88.8 Allergy status to other drugs, medicaments and biological substances; Z79.899 Other long term (current) drug therapy; Z79.82 Long term (current) use of aspirin; Z91.048 Other nonmedicinal substance allergy status
CPT/HCPCS: 36415; 80053; 81003; 83690; 85025; 96361; 96374; 99283; 99284; J0780; J7030